=== PATIENT | female | born 1950 | race Caucasian/White ===

== ENCOUNTER 2024-03-02 03:17 | Observation (INO) | payer OTHER ==
[2024-03-02 03:25] VITALS: BMI 39.9
[2024-03-02 04:00] LABS: BASO % 1.5 % (0-2.0); EOS % 3.9 % (0-4.5); HEMATOCRIT 38.6 % (32.4-45.2); HEMOGLOBIN 12.7 GM/dL (10.7-15.3); LYMPH % 51.9 % (8-40); MCH 27.5 pg (25.7-33.7); MCHC 32.9 g/dl (32.0-36.0); MEAN CELL VOLUME 83.6 fl (80-96); MEAN PLT VOLUME 8.4 fl (7.5-11.1); MONO % 7.9 % (3.8-10.2); NEUT % 34.8 % (42.8-82.8); PLATELET COUNT 361 10^3/uL (134-434); RBC 4.62 M/mm3 (3.60-5.2); RDW 16.6 % (11.6-15.6); WHITE BLOOD COUNT 5.3 K/mm3 (4.0-10.0)
[2024-03-02 04:07] LABS: INR 0.94 (0.83-1.09); PROTHROMBIN TIME (PATIENT) 10.8 SEC (9.7-13.0)
[2024-03-02 04:10] LABS: ACTIVATED PTT 30.8 SECONDS (25.2-36.5)
[2024-03-02] MEDS: SODIUM CHLORIDE 0.9% 500 ML INFUS.BAG IV ONE (04:16)
[2024-03-02 04:20] LABS: POTASSIUM 4.1 mmol/L (3.5-5.1)
[2024-03-02 04:22] LABS: ALBUMIN 3.3 g/dl (3.4-5.0); CALCIUM 8.7 mg/dL (8.5-10.1)
[2024-03-02 04:23] LABS: BLOOD UREA NITROGEN 13.5 mg/dL (7-18)
[2024-03-02 04:26] LABS: CREATININE 0.6 mg/dL (0.55-1.3)
[2024-03-02 04:27] LABS: BILIRUBIN,TOTAL 0.3 mg/dL (0.2-1); TOT PROT 7.9 g/dl (6.4-8.2)
[2024-03-02] MEDS ORDERED: amLODIPine BESYLATE 5 MG TABLET (FP) ONE (10:45)
[2024-03-02] MEDS ORDERED: ENOXAPARIN NA (PORCINE) 40 MG/0.4 ML DISP.SYRIN SQ ONE (10:46)
[2024-03-02] MEDS: ENOXAPARIN NA (PORCINE) 40 MG/0.4 ML DISP.SYRIN SQ SCH (10:55)
[2024-03-02] MEDS: amLODIPine BESYLATE 5 MG TABLET (FP) PO SCH (10:55)
[2024-03-02] MEDS ORDERED: APIXABAN 5 MG TABLET PO ONE (11:30)
[2024-03-02] MEDS ORDERED: APIXABAN 5 MG TABLET PO SCH (22:00)
[2024-03-03] MEDS: ACETAMINOPHEN 500 MG TABLET (FP) PO ONE (05:21)
[2024-03-03] MEDS: APIXABAN 5 MG TABLET PO SCH (10:39)
[2024-03-03 20:48] VITALS: BP 154/72; PULSE 77; RESP 16; TEMP 97.9
== END 2024-03-03 20:30 | disposition home or self-care (01) ==
LOC: JER 03:17 → JERBED 06:59 → J4S 16:18
PROVIDERS: ADMIT Internal Medicine; ATTEND Internal Medicine
PROC: 3E023GC Introduction of Other Therapeutic Substance into Muscle, Percutaneous Approach (ICD-10-PCS; principal; 2024-03-02)
PROC: 3E0337Z Introduction of Electrolytic and Water Balance Substance into Peripheral Vein, Percutaneous Approach (ICD-10-PCS; 2024-03-02)
DX: I48.91 Unspecified atrial fibrillation (principal); I10 Essential (primary) hypertension; R79.9 Abnormal finding of blood chemistry, unspecified; Z68.41 Body mass index [BMI] 40.0-44.9, adult; E66.8 Other obesity; E04.1 Nontoxic single thyroid nodule; Z91.199 Patient's noncompliance with other medical treatment and regimen due to unspecified reason; R01.1 Cardiac murmur, unspecified; K46.9 Unspecified abdominal hernia without obstruction or gangrene; Z90.49 Acquired absence of other specified parts of digestive tract; Z90.79 Acquired absence of other genital organ(s); Z87.891 Personal history of nicotine dependence
CPT/HCPCS: 36415; 70450-TC; 71046-TC-FY; 71275-TC; 72125-TC; 80053; 82550; 83735; 84439; 84443; 84484; 85025; 85379; 85610; 85730; 86850; 86900; 86901; 93005; 93010; 93306-TC; 96372; 99285-25; G0378; Q9967

== ENCOUNTER 2024-04-21 16:30 | Emergency (ER) | payer OTHER ==
[2024-04-21 17:13] VITALS: BP 126/79; PULSE 69; RESP 18; TEMP 97.7; BMI 39.1
[2024-04-21] MEDS ORDERED: ACETAMINOPHEN 325 MG TABLET (FP) ONE (18:48)
[2024-04-21] MEDS: ACETAMINOPHEN 500 MG TABLET (FP) PO ONE (18:52)
[2024-04-21] MEDS: ACETAMINOPHEN 1000 MG/100 ML BAG IVPB ONE (18:59)
[2024-04-21] MEDS ORDERED: morphine CARPU-JECT 2 MG/1 ML DISP.SYRIN SQ ONE (20:21)
== END 2024-04-21 21:42 | disposition home or self-care (01) ==
LOC: JER 16:30
PROC: 2W3FX1Z Immobilization of Left Hand using Splint (ICD-10-PCS; principal; 2024-04-21)
DX: S52.502A Unspecified fracture of the lower end of left radius, initial encounter for closed fracture (principal); M25.511 Pain in right shoulder; M54.2 Cervicalgia; W01.198A Fall on same level from slipping, tripping and stumbling with subsequent striking against other object, initial encounter
CPT/HCPCS: 70450-TC; 71046-TC-FY; 72125-TC; 72170-TC-FY; 73030-TC-RT-FY; 73070-TC-LT-FY; 73090-TC-LT-FY; 73110-TC-LT-FY; 73130-TC-LT-FY; 93005; 93010; 99284-25